=== PATIENT | female | born 1985 | race Caucasian/White ===

== ENCOUNTER → 2024-06-17 10:46 | Outpatient (REF) | payer BC, SELFPAY | LOC: WDC 10:46 | PROVIDERS: ATTENDING PHYSICIAN Physician Assistant Medical; OTHER PHYSICIAN Surgery | DX: Z00.00 Encounter for general adult medical examination without abnormal findings (principal); Z12.31 Encounter for screening mammogram for malignant neoplasm of breast | CPT/HCPCS: 77063; 77067 ==

== ENCOUNTER → 2025-04-14 08:39 | Outpatient (REF) | payer BC, SELFPAY | LOC: WDC 08:39 | PROVIDERS: ATTENDING PHYSICIAN Obstetrics & Gynecology; FAMILY PHYSICIAN Physician Assistant Medical | DX: R92.2 Inconclusive mammogram (principal) | CPT/HCPCS: 76641 ==